=== PATIENT | female | born 1970 | race Caucasian/White ===

== ENCOUNTER 2022-12-02 13:17 | Emergency (ER) | payer SELFPAY ==
[~2022-12-02] VITALS: Ht 152.4 cm; Wt 86.2 kg
[2022-12-02 13:57] VITALS: BP 160/104
[2022-12-02 14:27] LABS: BASOPHILS % (AUTO) 0.2 % (0.0-2.0); EOSINOPHILS % (AUTO) 0.3 % (0.0-4.0); HEMATOCRIT 41.2 % (36-48); HEMOGLOBIN 14.1 g/dL (12.0-16.0); LYMPHOCYTES % (AUTO) 17.5 % (20.5-51.1); MEAN CORPUSCULAR HEMOGLOBIN 32 pg (27-31); MEAN CORPUSCULAR HGB CONC 34 g/dL (33-37); MEAN CORPUSCULAR VOLUME 93.4 fL (80-94); MONOCYTES # (AUTO) 0.5 K/uL (0.8-1.0); NEUTROPHILS # (AUTO) 8.7 K/uL (1.8-7.7); PLATELET COUNT (AUTO) 377 K/uL (140-450); RED BLOOD CELL COUNT(AUTO) 4.42 MIL/uL (4.20-5.40); RED CELL DISTRIBUTION WIDTH 12.8 % (11.6-13.7); WHITE BLOOD COUNT (AUTO) 11.2 K/uL (4.8-10.8)
[2022-12-02 14:47] LABS: PROTHROMBIN TIME 10.5 secs (10.8-13.4)
[2022-12-02 14:53] LABS: ALBUMIN 3.9 g/dL (3.4-5.0); CARBON DIOXIDE 26.1 mmol/L (21-32); CREATININE 0.7 mg/dL (0.6-1.3); POTASSIUM 3.1 mmol/L (3.5-5.1); TOTAL BILIRUBIN 0.3 mg/dL (0.0-1.0)
[2022-12-02 14:55] VITALS: BP 157/94
[2022-12-02] MEDS ORDERED: NACL 0.9% 1,000 ML IV ONE (15:05)
[2022-12-02] MEDS ORDERED: ONDANSETRON 4 MG/2 ML VIAL IVP ONE (15:10)
--- NOTE | 2022-12-02 15:10 | NUR ---
EM LAWSON TO ER BED 10
--- NOTE | 2022-12-02 15:25 | NUR ---
PATIENT BROUGHT BACK FROM CT TO BED 10. PATIENT IS VOMITING. ZOFRAN GIVEN. STARTED ON IV FLUID BOLUS ORDERED. V/S STABLE AT THIS TIME. PATIENT DENIES ANY PAIN AT THIS TIME.
--- NOTE | 2022-12-02 15:45 | NUR ---
XRAY AT BEDSIDE
--- NOTE | 2022-12-02 15:55 | NUR ---
PATIENT TAKEN BACK TO CT AND BACK TO ROOM 10.
--- NOTE | 2022-12-02 16:50 | NUR ---
TELENEURO REQUEST SENT; CALL ID [id number]
[2022-12-02] MEDS ORDERED: ASPIRIN 325 MG TAB PO ONE (17:30)
--- NOTE | 2022-12-02 18:14 | NUR ---
SPOKE WITH AI WEI MADE AWARE THAT PATIENT IS BEING TRANSFERRED TO [facility]. SON IS AGREEABLE.
--- NOTE | 2022-12-02 18:15 | NUR ---
Patient to be transferred to [facility]. Is being transferred due to NEED HIGHER LEVEL OF CARE. Receiving facility has accepting physician and available space. ER physician has signed transfer form. Patient or responsible republican has agreed to transfer and signed form. Patient belongings inventoried and will be sent with patient. Copy of nursing notes, lab reports, EKG, Physicians Orders and X-rays to be sent with patient. Report called to SUZANNE MCKEON at receiving facility. [facility] ambulance service has been called for transfer. EN ROUTE TO [facility].
== END 2022-12-02 18:29 | disposition short-term general hospital (02) ==
LOC: MED 13:17
DX: I63.532 Cerebral infarction due to unspecified occlusion or stenosis of left posterior cerebral artery (principal); Z20.822 Contact with and (suspected) exposure to COVID-19; R11.2 Nausea with vomiting, unspecified; E11.9 Type 2 diabetes mellitus without complications; I10 Essential (primary) hypertension; E78.5 Hyperlipidemia, unspecified
CPT/HCPCS: 36415; 70450; 70496; 70498; 71045; 80053; 83880; 84484; 85025; 85610; 85730; 87426; 87804; 93005; 96361; 96374; 99291; J2405; J7030; Q0092; Q9967